=== PATIENT | male | born 1960 | race Caucasian/White ===

== ENCOUNTER → 2016-10-17 | Day surgery (SDC) | payer BC ==
[2016-10-16 12:06] VITALS: BMI 23.5
[~2016-10-17] MED LIST: BUPIVACAINE 0.25% 30 ML VIAL INF ONE; DEXAMETHASONE 4 MG/ML VIAL IV PRN; DEXAMETHASONE 4 MG/ML VIAL ONE; DIAZEPAM 5 MG TAB PO PRN; FENTANYL 100 MCG/2 ML VIAL IV PRN; FENTANYL 100 MCG/2 ML VIAL ONE; GLYCOPYRROLATE 1 MG VIAL ONE; HYDROCODONE 5 MG/ACETAMIN 325 MG TAB PO PRN; KETOROLAC TROMETH 30 MG/ML VIAL IV PRN; KETOROLAC TROMETH 30 MG/ML VIAL ONE; LABETALOL 20 MG/4 ML SYRINGE IV PRN; LR 1,000 ML IV ONE; LR 1,000 ML IV SCH; MIDAZOLAM 2 MG/2 ML VIAL ONE; NEOSTIGMINE ONE; NS 1,000 ML IV SCH; NS 250 ML IV SCH; ONDANSETRON HCL 4 MG/2 ML VIAL IV PRN; ONDANSETRON HCL 4 MG/2 ML VIAL ONE; PROPOFOL 200 MG/20 ML VIAL IV ONE; ROCURONIUM 50 MG/5 ML VIAL IV ONE; SCOPOLAMINE TRANSDERMAL PATCH TOP PRN; hydrALAZINE 20 MG/ML VIAL IV PRN
--- NOTE | 2016-10-17 06:56 | SC.ANESEVA ---
Anesthesia Eval & Plan ([facility]) - Providers Stated Procedure: right side hernia Surgeon:: Sanjay Arango - Medications/Allergies Allergies: Allergies amoxicillin Allergy (Verified 10/16/16 12:10) Rash-Generalized cat dander Allergy (Verified 10/16/16 12:10) Unknown shellfish derived Allergy (Verified 10/16/16 12:10) Unknown Home Medications: Home Medication List No Home Medications 10/16/16 [History] Current Medication List: Reviewed - Focused Physical Exam NPO since: Since after Midnight Mallampati: Class II Thyromental Distance: Greater than 3 Neck: Limited Range of Motion Dental: Normal - no significant findings Cardiovascular/Chest: Normal (RRR no mumurs or rubs.) Respiratory: Lungs clear. negative: Wheezing Any problems with anesthesia, including nausea and vomiting?: No Any relatives with a history of Malignant Hyperthermia?: No Prone to Motion Sickness: No Other: Diagnoses UNIL INGUINAL HERNIA, W/O OBST OR GANGR, NOT SPCF RECUR (10/17/16) Allergies Allergy/AdvReac Type Severity Reaction Status Date / Time amoxicillin Allergy Rash-Genera Verified 10/16/16 12:10 lized cat dander Allergy Unknown Verified 10/16/16 12:10 shellfish derived Allergy Unknown Verified 10/16/16 12:10 Home Medications Medication Instructions Recorded Last Taken Type No Home Medications 10/16/16 Unknown History Height and Weight Patient's height 5 ft 7 in Patient's weight 68.039 kg Weight (Calculated Kilograms) 68.039 BMI 23.5 - Anesthetic Plan Anesthesia Type: General ASA Class: 2 - Focused Review of Systems Cardiac History: No: Hx Cardiac Disorders HEENT: No: Other HEENT Problems Respiratory: Yes: Hx Asthma Gastrointestinal: No: Hx Gastrointestinal Disorders Neurological/Musculoskeletal: No: Hx Neurological Disorders Smoking Status: Never smoker Surgical History: Yes: Back (neck surgery) Other Surgical History: inguinal hernia x 2
[2016-10-17 08:49] VITALS: BP 116/79; PULSE 58; TEMP 97.3
--- NOTE | 2016-10-17 08:55 | PCM.DCS92 ---
Discharge Outpatient Note Additional Instructions: INSTRUCTIONS: 10/17/16 Resume home medications Diet : High Fiber Stool softener daily. Take laxative if needed Okay to ambulate Ice pack to groin for 15-20 minutes 4-6 times per day for 1 week Okay to shower tomorrow No straining No Lifting anything 30lbs or greater No driving x4 days (and only if not taking pain medications) Call office for a follow up appointment [phone]
--- NOTE | 2016-10-17 11:07 | HIMOPRPT ---
PROCEDURE: DATE OF PROCEDURE: 10/17/16 PREOPERATIVE DIAGNOSIS: Right inguinal hernia. POSTOPERATIVE DIAGNOSIS: Right inguinal hernia. PROCEDURE: Laparoscopic repair of Right inguinal hernia using Bard 3D mesh. SURGEON: Sanjay Arango MD ANESTHESIA: General. COMPLICATIONS: None. ESTIMATED BLOOD LOSS: less than 5cc OPERATIVE NOTE: The patient was placed supine on the operating table. After induction of anesthesia, he was prepped and draped in the usual fashion. A small umbilical incision was made and a 5-mm Optiview trocar was placed. With this in place, we insufflated the abdomen with CO2 until a pressure of 15 was achieved. The abdomen was inspected. We then placed a 5-mm port in the right side of the abdomen and an 11-mm port on the right. On inspection of the abdomen a RIH was noted. No hernia present on the right side. We went ahead and opened the peritoneum on the right side. Once we did this, we were able to bluntly dissect the peritoneum and create a preperitoneal space. The hernia sac was pulled away from the defect and the surrounding cord structures. Once the proper amount of space was created, we went ahead and placed a right-sided 3D mesh. We covered the defect and the surrounding tissues. We then used a SecureStrap to secure this to the pubic tubercle, and the abdominal wall muscles. Once this was secured, we went ahead and closed the peritoneum. We noted there were no wrinkles or folds on the mesh and we pulled the peritoneum over the mesh and approximated this to the upper edge of the peritoneum using the SecureStrap Tacker as well. The mesh remained nicely in place. This area was completely hemostatic. We went ahead and used a 0 Vicryl suture and closed the larger port site after we had removed the port. The remaining 5 mm ports were removed allowing the CO2 to escape. The wounds were irrigated and then infiltrated with 0.25% Marcaine. We went ahead and closed the skin edges using 4 -0 Monocryl and Dermabond. Sponge, needle, and instrument counts were correct.
--- NOTE | 2016-10-17 11:20 | SC.ANESPOS ---
Post-Anesthesia Note LOC: Fully Awake Post-Anesthesia Assessment: Awake, Returned to Baseline, Hemodynamically Stable , Pain Control Adequate Phase I & II Recovery Complete: Yes Apparent Anesthesia Complication: No : N - Vital Signs Blood Pressure: 116/79 Pulse: 58 Resp Rate: 20 O2 Sat: 97 Temp: 97.3 F
== END ==
LOC: CPSC 07:37
PROVIDERS: ATTEND Surgery
PROC: 0YU64JZ Supplement Left Inguinal Region with Synthetic Substitute, Percutaneous Endoscopic Approach (ICD-10-PCS; principal; 2016-10-17 08:30)
DX: K40.90 Unilateral inguinal hernia, without obstruction or gangrene, not specified as recurrent (principal); J45.909 Unspecified asthma, uncomplicated
CPT/HCPCS: 49650; C1781; J1100; J1885; J2250; J2405; J2704; J2710; J3010; J3490